=== PATIENT | female | born 1955 | race Caucasian/White ===

== ENCOUNTER 2024-11-04 11:07 | Outpatient (CLI) | payer MEDICARE | END 2024-11-04 11:08 | disposition home or self-care (01) | LOC: CSHSLEEP 11:07 | PROVIDERS: ATTEND Physician Assistant Medical | DX: G47.33 Obstructive sleep apnea (adult) (pediatric) (principal); R53.83 Other fatigue; R51.9 Headache, unspecified; R06.83 Snoring; I10 Essential (primary) hypertension; G25.89 Other specified extrapyramidal and movement disorders | CPT/HCPCS: 95811 ==